=== PATIENT | female | born 1995 | race Caucasian/White ===

== ENCOUNTER 2016-08-17 12:40 | Emergency (ER) | payer MEDICAID ==
[~2016-08-17] VITALS: Ht 157.5 cm; Wt 60.1 kg
[2016-08-17 13:43] VITALS: BP 110/61
--- NOTE | 2016-08-17 14:28 | NUR ---
PT TAKEN TO BED 7.
--- NOTE | 2016-08-17 14:42 | NUR ---
21/F presents to ED for evaluation of abd pain accompanied with N/V since yesterday. Pt has had no vomiting today. Abdomen soft, non tender. Pt is AOX4, ambulatory with steady gait. VSS.
--- NOTE | 2016-08-17 14:56 | NUR ---
Pt being evaluating by VICENTE Simmons
[2016-08-17] MEDS ORDERED: ONDANSETRON 4 MG ODT PO ONE (15:05)
[2016-08-17] MEDS ORDERED: ALUMINUM HYD/MAG/SIMETHICONE 30 ML, BELLADONNA/PHENOBARBITAL 10 ML, LIDOCAINE VISCOUS 2... PO ONE (15:05)
--- NOTE | 2016-08-17 15:40 | NUR ---
VICENTE hopson made aware of pt's heart of 114. Verbal order for po fluids. Pt provided with water.
--- NOTE | 2016-08-17 16:02 | NUR ---
[place] made aware of HR 116. Pt states she wants to leave because her mother in law has to go to work and that is their ride home.
--- NOTE | 2016-08-17 16:35 | NUR ---
Patient discharged with v/s stable. Written and verbal after care instructions given and explained. Patient alert, oriented and verbalized understanding of instructions. Ambulatory with steady gait. All questions addressed prior to discharge. ID band removed. Patient advised to follow up with PMD. Rx of BENTYL, LOPERAMIDE HYDROCHLORIDE, AND ZOFRAN given. Patient educated on indication of medication including possible reaction and side effects. Opportunity to ask questions provided and answered.
[2016-08-17 16:36] VITALS: BP 105/62
== END 2016-08-17 16:35 | disposition home or self-care (01) ==
LOC: MED 12:40
DX: R11.2 Nausea with vomiting, unspecified (principal); R19.7 Diarrhea, unspecified; R10.13 Epigastric pain
CPT/HCPCS: 81025; 99283; S0119

== ENCOUNTER 2018-07-02 19:27 | Emergency (ER) | payer MEDICAID ==
[~2018-07-02] VITALS: Ht 154.9 cm; Wt 72.1 kg
[2018-07-02 19:39] VITALS: BP 112/68
--- NOTE | 2018-07-02 19:41 | NUR ---
PT AMBULATORY TO ER LOBBY W/ STEADY GAIT IN STABLE CONDITION.
--- NOTE | 2018-07-02 21:16 | NUR ---
PT TAKEN TO BED 12
--- NOTE | 2018-07-02 21:24 | NUR ---
PT PRESENTS TO ED WITH C/O FEVER AND COUGH X 2 DAYS. AAO X4, GCS 15, RESPIATIONS EVEN AND UNLABORED, BL LUNG CLEAR. C/O NON PRODUCTIVE COUGH NOTED. VSS, NO ACUTE DISTRESS AT THIS TIME. DR. PEREZ MADE AWARE OF PT STATUS. WILL CONTINUE TO [facility]
--- NOTE | 2018-07-02 22:18 | NUR ---
DR. PEREZ EVALUATING PT AT BEDSIDE
--- NOTE | 2018-07-02 22:54 | NUR ---
Patient discharged with v/s stable. Written and verbal after care instructions given and explained. Patient alert, oriented and verbalized understanding of instructions. Ambulatory with steady gait. All questions addressed prior to discharge. ID band removed. Patient advised to follow up with PMD. Rx of AMOXICILLIN 500 MG given. Patient educated on indication of medication including possible reaction and side effects. Opportunity to ask questions provided and answered.
[2018-07-02 22:55] VITALS: BP 114/71
== END 2018-07-02 22:54 | disposition home or self-care (01) ==
LOC: MED 19:27
DX: J06.9 Acute upper respiratory infection, unspecified (principal)
CPT/HCPCS: 36415; 81002; 81025; 87804; 99283

== ENCOUNTER 2018-12-13 17:33 | Observation (INO) | payer MEDICAID ==
[~2018-12-13] VITALS: Ht 154.9 cm; Wt 83.0 kg
[2018-12-13 17:38] VITALS: BP 125/70
--- NOTE | 2018-12-13 17:48 | NUR ---
PT SENT TO OB VIA W/C WITH EMT ANABEL FOR L&D EVAL C/O LOW ABD PAIN S/P MEC FALL 10MINS AGO -VAG BLEEDING,-LOC.
[2018-12-13] MEDS ORDERED: PREN-380 PO (19:33)
== END 2018-12-13 21:15 | disposition home or self-care (01) ==
LOC: MED 17:33 → MLD 17:53
PROVIDERS: ADMIT Obstetrics & Gynecology; ATTEND Obstetrics & Gynecology
DX: O62.9 Abnormality of forces of labor, unspecified (principal); Z3A.32 32 weeks gestation of pregnancy
CPT/HCPCS: 76805; 99281; G0378; Q0092; 59025

== ENCOUNTER 2022-12-01 16:35 | Emergency (ER) | payer MEDICAID, OTHER ==
[~2022-12-01] VITALS: Ht 162.6 cm; Wt 68.0 kg
[~2022-12-01 16:35] MED LIST: PREN-380 PO
[2022-12-01 17:15] VITALS: BP 127/80; PULSE 68; RESP 18; TEMP 97.8; O2SAT 98
[2022-12-01] MEDS ORDERED: AMPICILLIN/SULBACTAM 3 GM in NACL 0.9% 100 ML IV ONE (17:30)
[2022-12-01] MEDS ORDERED: AMOX1TAB8 PO (17:34)
[2022-12-01] MEDS ORDERED: SULF-59 PO (17:34)
[2022-12-01] MEDS ORDERED: BACTO TP (17:38)
[2022-12-01] MEDS ORDERED: IBUP-2213 PO (17:38)
[2022-12-01] MEDS ORDERED: CHLO237S1 TP (17:38)
--- NOTE | 2022-12-01 18:01 | NUR ---
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 PT DENIES FEVER, DRAINAGE. SWELLING, MILD REDNESS, AND PUNCTURE NOTED. NAD, SAFETY MAINTAINED. HX: DENIES NKA
[2022-12-01] MEDS ORDERED: AMPICILLIN/SULBACTAM 3 GM VIAL ONE (18:04)
[2022-12-01] MEDS ORDERED: ACET-9527 PO (18:33)
[2022-12-01 19:00] VITALS: BP 111/61; PULSE 62; RESP 15; TEMP 97.5; O2SAT 99
--- NOTE | 2022-12-01 19:00 | NUR ---
Patient discharged with v/s stable. Written and verbal after care instructions given and explained. Patient alert, oriented and verbalized understanding of instructions. Ambulatory with steady gait. All questions addressed prior to discharge. ID band removed. Patient advised to follow up with PMD. Rx of AMOX/POTASSIUM CLAV, MUPIROCIN, CHLOHEXIDINE GLOCONATE,IBUPROFEN, SULFAMETHOXAZOLE given. Opportunity to ask questions provided and answered.
== END 2022-12-01 19:00 | disposition home or self-care (01) ==
LOC: MED 16:35
DX: S61.250A Open bite of right index finger without damage to nail, initial encounter (principal); L03.011 Cellulitis of right finger; L08.9 Local infection of the skin and subcutaneous tissue, unspecified; Z79.899 Other long term (current) drug therapy; W55.01XA Bitten by cat, initial encounter; Y93.89 Activity, other specified; Y92.89 Other specified places as the place of occurrence of the external cause; Y99.8 Other external cause status
CPT/HCPCS: 73130; 96365; 99284; J0295